=== PATIENT | female | born 1995 | race Two or more races ===

== ENCOUNTER 2019-02-16 18:22 | Emergency (ER) | payer MEDICAID ==
[~2019-02-16] VITALS: Ht 165.1 cm; Wt 98.6 kg
[2019-02-16 20:35] VITALS: BP 145/90
== END 2019-02-16 20:29 | disposition home or self-care (01) ==
LOC: ER 18:23
DX: O9A.213 Injury, poisoning and certain other consequences of external causes complicating pregnancy, third trimester (principal); S62.396A Other fracture of fifth metacarpal bone, right hand, initial encounter for closed fracture; Z3A.36 36 weeks gestation of pregnancy; Y04.8XXA Assault by other bodily force, initial encounter; Y93.89 Activity, other specified; Y92.89 Other specified places as the place of occurrence of the external cause; Y99.8 Other external cause status
CPT/HCPCS: 29125; 73120; 99284

== ENCOUNTER 2019-02-27 15:04 | Outpatient (CLI) | payer MEDICAID | END 2019-02-27 16:30 | disposition home or self-care (01) | LOC: ORTHO 15:04 | PROVIDERS: ATTEND Orthopaedic Surgery | DX: S62.326D Displaced fracture of shaft of fifth metacarpal bone, right hand, subsequent encounter for fracture with routine healing (principal); X58.XXXD Exposure to other specified factors, subsequent encounter | CPT/HCPCS: 73130; G0463 ==

== ENCOUNTER 2019-08-06 00:07 | Emergency (ER) | payer MEDICAID ==
[~2019-08-06] VITALS: Ht 167.6 cm; Wt 96.8 kg
[2019-08-06 00:10] VITALS: BP 138/93
[2019-08-06] MEDS ORDERED: ERYT1OIN6 LEFTEYE (00:27)
== END 2019-08-06 00:36 | disposition home or self-care (01) ==
LOC: ER 00:08
DX: S80.12XA Contusion of left lower leg, initial encounter (principal); H00.14 Chalazion left upper eyelid; Z79.899 Other long term (current) drug therapy; W18.39XA Other fall on same level, initial encounter; Y93.89 Activity, other specified; Y92.89 Other specified places as the place of occurrence of the external cause; Y99.8 Other external cause status
CPT/HCPCS: 99283

== ENCOUNTER 2022-04-16 15:09 | Emergency (ER) | payer MEDICAID ==
[~2022-04-16] VITALS: Ht 167.6 cm; Wt 90.0 kg
[2022-04-16 15:48] VITALS: BP 131/57
== END 2022-04-16 17:23 | disposition left against medical advice (07) ==
LOC: ER 15:09
DX: R51.9 Headache, unspecified (principal); Z53.21 Procedure and treatment not carried out due to patient leaving prior to being seen by health care provider

== ENCOUNTER 2023-02-16 13:32 | Emergency (ER) | payer MEDICAID ==
[~2023-02-16] VITALS: Ht 167.6 cm; Wt 90.0 kg
[2023-02-16 13:49] VITALS: BP 136/82; PULSE 84; RESP 18; TEMP 97.8; O2SAT 100
== END 2023-02-16 14:43 | disposition left against medical advice (07) ==
LOC: ER 13:32
DX: H92.01 Otalgia, right ear (principal); Z53.21 Procedure and treatment not carried out due to patient leaving prior to being seen by health care provider
CPT/HCPCS: 99281